=== PATIENT | male | born 1990 | race Caucasian/White ===

== ENCOUNTER 2016-09-04 23:11 | Observation (INO) | payer SELFPAY ==
[2016-09-04 23:19] VITALS: BMI 25.5
[2016-09-04 23:21] VITALS: RESP 16
--- NOTE | 2016-09-04 23:22 | ED PDOC ---
Arrival/HPI - General Time Seen by Provider: 09/04/16 23:18 Historian: Patient - History of Present Illness Narrative History of Present Illness (Text): 09/04/16 23:20 Patient presents with slurring of speech and alcohol on breath. Admits to drinking throughout the day. Patient denies suicidal or homicidal ideations. Denies any trauma or injury. Symptom Onset: Sudden Symptom Course: Unchanged Activities at Onset: Rest Context: Home Past Medical History - Provider Review Nursing Documentation Reviewed: Yes - Infectious Disease Hx of Infectious Diseases: None - Tetanus Immunization Tetanus Immunization: Unknown - Past Medical History Past Medical History: No Previous - Psychiatric Hx Depression: No Hx Emotional Abuse: No Hx Physical Abuse: No Hx Substance Use: No - Surgical History Hx Orthopedic Surgery: Yes (R LEG) - Suicidal Assessment Feels Threatened In Home Enviroment: No Family/Social History - Physician Review Nursing Documentation Reviewed: Yes Family/Social History: No Known Family HX Hx Alcohol Use: Yes Hx Substance Use: No Hx Substance Use Treatment: No Allergies/Home Meds Allergies/Adverse Reactions: Allergies No Known Allergies Allergy (Verified 09/04/16 23:16) Home Medications: Home Meds Medication Instructions Recorded Confirmed No Known Home Med 09/04/16 09/04/16 Review of Systems - Review of Systems Systems not reviewed;Unavailable: Intoxicated Physical Exam - Physical Exam Narrative Physical Exam (Text): 09/04/16 23:23 Patient is in no distress, no airway compromise, breathing without difficulty, good insp/exp effort. No signs of head/torso/extremity trauma. Following commands without difficulty. Head: Present: Atraumatic, Normocephalic. No: Tenderness, Contusion, Swelling, Ecchymosis, Abrasion, Laceration Pupils: Present: PERRL Extroacular Muscles: Present: EOMI Conjunctiva: Present: Normal Mouth: Present: Moist Mucous Membranes Neck: Present: Normal Range of Motion. No: MIDLINE TENDERNESS, Paraspinal Tenderness Respiratory/Chest: Present: Clear to Auscultation, Good Air Exchange. No: Respiratory Distress, Accessory Muscle Use Cardiovascular: Present: Regular Rate and Rhythm, Normal S1, S2. No: Murmurs Abdomen: Present: Normal Bowel Sounds. No: Tenderness, Distention, Peritoneal Signs, Rebound, Guarding Back: Present: Normal Inspection. No: Midline Tenderness, Paraspinal Tenderness Upper Extremity: Present: Normal Inspection. No: Cyanosis, Edema Lower Extremity: Present: Normal Inspection. No: Edema Neurological: Present: GCS=15, CN II-XII Intact Skin: Present: Warm, Dry, Normal Color. No: Rashes Lymphatic: Present: OX3, NI, NC Psychiatric: Present: Alert. Absent: Agitated, suicidal/homicidal ideations Vital Signs Reviewed: Yes Vital Signs Temp Pulse Resp BP Pulse Ox 09/05/16 06:24 97.8 F 93 H 16 105/61 100 09/05/16 04:05 86 16 108/48 L 100 09/05/16 03:00 81 16 100 09/05/16 01:28 90 16 100 09/04/16 23:19 96.6 F L 83 16 107/75 97 Temperature: Afebrile Blood Pressure: Normal Pulse: Regular Respiratory Rate: Normal Appearance: Positive for: Well-Appearing, Non-Toxic, Comfortable Pain Distress: None Mental Status: Positive for: Alert and Oriented X 3 Medical Decision Making ED Course and Treatment: 09/04/16 23:19 Impression: A 26 year old male with intoxication. Plan: -- Reassess and disposition Prior Visits: Notes and results from previous visits were reviewed. Patient last reported to the emergency department on 06/01/14 for evaluation of lower extremity injury after a fall. Patient advised to follow up with orthopedist and take medications for pain. Patient was discharged. ED OBSERVATION Discharge: Yes Date of observation admission: 09/04/16 Time of observation admission: 23:20 - Observation admission statement Patient is being placed in observation because:: intoxication - Goals of Observation Goals of observation are:: pending sobriety - Progress Note Progress Note: 09/05/16 01:20 Patient is in no acute distress. 09/05/16 03:20 Patient is resting comfortably. 09/05/16 05:20 Patient in no acute distress, sleeping. 09/05/16 06:28 Awake, alert, steady gait. - Scribe Statement The provider has reviewed the documentation as recorded by the Cynthia Patrick Provider Scribe Attestation: All medical record entries made by the Scribe were at my direction and personally dictated by me. I have reviewed the chart and agree that the record accurately reflects my personal performance of the history, physical exam, medical decision making, and the department course for this patient. I have also personally directed, reviewed, and agree with the discharge instructions and disposition. Disposition/Present on Arrival - Present on Arrival Any Indicators Present on Arrival: No History of DVT/PE: No History of Uncontrolled Diabetes: No Urinary Catheter: No History Surgical Site Infection Following: None - Disposition Have Diagnosis and Disposition been Completed?: Yes Diagnosis: Alcohol intoxication Disposition: HOME/ ROUTINE Disposition Time: 06:28 Patient Plan: Discharge Condition: STABLE
[2016-09-05 01:28] VITALS: O2SAT 100
[2016-09-05 06:25] VITALS: BP 105/61; PULSE 93; TEMP 97.8
== END 2016-09-05 06:29 | disposition home or self-care (01) ==
LOC: ED 23:11 → EROBSV 23:21
PROVIDERS: ADMIT Student in an Organized Health Care Education/Training Program; ATTEND Student in an Organized Health Care Education/Training Program
DX: F10.129 Alcohol abuse with intoxication, unspecified (principal); Y90.9 Presence of alcohol in blood, level not specified
CPT/HCPCS: 99283; G0378